=== PATIENT | female | born 1990 | race Caucasian/White ===

== ENCOUNTER → 2021-02-04 14:14 | Outpatient (BNVA) | payer BC, MEDICAID, SELFPAY | PROVIDERS: Family Provider Nurse Practitioner Family; Visit Provider Obstetrics & Gynecology | DX: N93.9 Abnormal uterine and vaginal bleeding, unspecified (principal) | CPT/HCPCS: 84146; 84443; 85025; 88175 ==

== ENCOUNTER → 2021-02-05 14:18 | Outpatient (BNVA) | payer BC, MEDICAID, SELFPAY | PROVIDERS: Family Provider Nurse Practitioner Family; PCP Nurse Practitioner Family; Visit Provider Obstetrics & Gynecology | DX: N93.9 Abnormal uterine and vaginal bleeding, unspecified (principal) | CPT/HCPCS: 76830 ==

== ENCOUNTER → 2021-03-10 15:48 | Outpatient (BNVA) | payer BC, MEDICAID, SELFPAY | PROVIDERS: Family Provider Nurse Practitioner Family; PCP Nurse Practitioner Family; Visit Provider Obstetrics & Gynecology | DX: N93.9 Abnormal uterine and vaginal bleeding, unspecified (principal); A59.01 Trichomonal vulvovaginitis; Z11.3 Encounter for screening for infections with a predominantly sexual mode of transmission; R87.610 Atypical squamous cells of undetermined significance on cytologic smear of cervix (ASC-US); R87.810 Cervical high risk human papillomavirus (HPV) DNA test positive | CPT/HCPCS: 81025; 86592; 86803; 87340; 87491; 87591; 87806; 88305 ==

== ENCOUNTER → 2021-04-29 09:01 | Outpatient (BNVA) | payer BC, MEDICAID, SELFPAY | PROVIDERS: Family Provider Nurse Practitioner Family; PCP Nurse Practitioner Family; Visit Provider Obstetrics & Gynecology | DX: N93.9 Abnormal uterine and vaginal bleeding, unspecified (principal); Z30.9 Encounter for contraceptive management, unspecified | CPT/HCPCS: 81025 ==

== ENCOUNTER → 2021-05-26 09:43 | Outpatient (BNVA) | payer BC, MEDICAID, SELFPAY | PROVIDERS: Family Provider Nurse Practitioner Family; PCP Nurse Practitioner Family; Visit Provider Obstetrics & Gynecology | DX: N93.9 Abnormal uterine and vaginal bleeding, unspecified (principal) | CPT/HCPCS: 76857; 81025 ==

== ENCOUNTER → 2021-10-27 13:03 | Outpatient (BNVA) | payer BC, MEDICAID, SELFPAY | PROVIDERS: Family Provider Nurse Practitioner Family; PCP Nurse Practitioner Family; Visit Provider Obstetrics & Gynecology | DX: D64.9 Anemia, unspecified (principal) | CPT/HCPCS: 85027 ==

== ENCOUNTER → 2022-03-30 11:30 | Outpatient (BNVA) | payer BC, MEDICAID, SELFPAY | PROVIDERS: Family Provider Nurse Practitioner Family; PCP Nurse Practitioner Family; Visit Provider Obstetrics & Gynecology | DX: A59.01 Trichomonal vulvovaginitis (principal); Z12.4 Encounter for screening for malignant neoplasm of cervix; D64.9 Anemia, unspecified | CPT/HCPCS: 85027; 87624; 87661 ==

== ENCOUNTER 2022-06-02 08:50 | Observation (INO) | payer BC, MEDICAID, SELFPAY ==
[2022-05-28 11:08] VITALS: BMI 35.4
[2022-05-28 11:37] LABS: Basophils % 0.3 %; Eosinophils # 0.2 10^3/uL (0.0-0.8); Eosinophils % 2.2 %; Hematocrit 40.4 % (37.0-47.0); Hemoglobin 13.2 g/dL (11.5-15.3); Lymphocytes # 2.4 10^3/uL (0.8-4.8); Lymphocytes % 23.6 %; Mean Corpuscular HGB Conc 32.7 g/dL (30.0-36.0); Mean Corpuscular Hemoglobin 29.7 pg (28.0-34.0); Mean Corpuscular Volume 90.8 fl (81-99); Mean Platelet Volume 10.9 fL (7.4-10.4); Monocytes # 0.5 10^3/uL (0.2-0.9); Neutrophils # 7.11 10^3/uL (1.8-7.7); Neutrophils % 68.7 %; Nucleated Red Blood Cells % 0 %; Platelet Count 294 10^3/cmm (130-400); Red Blood Count 4.45 10^6/uL (4.1-5.3); Red Cell Distribution Width 12.5 % (12.1-15.1); White Blood Count 10.4 10^3/uL (4.0-10.0)
[2022-05-28 11:59] LABS: Alanine Aminotransferase 10 U/L (0-33); Alkaline Phosphatase 78 U/L (35-105); Anion Gap 14.1 (5-19); Aspartate Amino Transferase 12 U/L (0-32); Blood Urea Nitrogen 9 mg/dL (6-20); Calcium 9.3 mg/dL (8.5-10.5); Carbon Dioxide 23 mmol/L (22-29); Chloride 104 mmol/L (98-107); Globulin 3.2 g/dL (1.3-4.6); Glomerular Filtration Rate 95.8 mL/min (90-130); Glucose 93 mg/dL (65-115); Osmolality Calculated 282 mOsm/kg (285-295); Potassium 4.1 mmol/L (3.5-5.1); Sodium 137 mmol/L (136-145); Total Bilirubin 0.5 mg/dL (0.15-1.2); Total Protein 7.2 g/dL (6.6-8.7)
[2022-05-28 12:01] LABS: Bilirubin Urine Negative (Negative); Blood Urine Small (Negative); Glucose Urine UA Negative (Normal); Ketones Urine Negative (Negative); Leukocyte Esterase Urine Negative (Negative); Nitrate Urine Negative; Protein Urine Negative (Negative); Urine Appearance Clear (CLEAR); Urine Color Yellow (Yellow); Urobilinogen Urine 0.2 mg/dL (Negative); pH Urine 5.5 (5-7)
[2022-05-28 12:23] LABS: Add Urine Culture? No; Add Urine Microscopic? YES; Bacteria Urine TRACE /hpf; WBC Urine 0-4 /hpf (0-5)
--- NOTE | 2022-05-28 14:47 | ANES.PREANE2 ---
Pre-Anesthetic Assessment Height/Weight: Height 1.6 m Weight 90.718 kg Preop Diagnosis: Abnormal uterine bleeding menorrhagia irregular menses Operation Date: 06/02/22 07:00 Proposed Procedures p Total Vaginal Hysterectomy 52224,N92.1(Not Applicable) - Quinten Roberts MD Familial anesthetic complications: none Was Beta Vivien taken within 24 hours: Yes Was Clonidine taken within 24 hours: N/A Social No alcohol and No tobacco Exam alert, oriented x 3, clear to auscultation bilaterally and regular rate & rhythm Airway Submandibular: within normal limits Cervical ROM: within normal limits Mallampati: Class II Dentition: chipped CV/HEM Anemia and Hypertension Neuropsych Headache Anesthetic Plan ASA status: 2 Anesthesia: General Medications/Allergies Home Medications Medication Instructions Recorded Confirmed Last Taken Type ferrous sulfate 325 mg (65 mg 325 mg PO QPM 04/19/22 05/28/22 Unknown History iron) tablet metoprolol succinate 25 mg 25 mg PO DAILY 05/28/22 05/28/22 Unknown History tablet,extended release 24 hr sumatriptan succinate 50 mg tablet 50 mg PO Q2H PRN Headache 05/28/22 05/28/22 Unknown History (Imitrex) Allergies Allergy/AdvReac Type Severity Reaction Status Date / Time Penicillins Allergy ALGY-Rash Verified 05/28/22 11:56 PFSH Anesthesia Medical History No pertinent past medical history Denies diabetes, asthma, hypertension, seizures, DVT/PE PCP: MARIA ELENA Box Surgical History History of arthroscopic knee surgery Right knee for torn meniscus at age 10 S/P appendectomy as an infant(3 months old) at the time mass was removed from upper abdomen Status post surgery Surgery as an (3 months old) to remove a mass from her right upper abdomen which she was told was an absorbed twin Status post tonsillectomy and adenoidectomy At the age of 5 Family History Family/Other Colon cancer maternal great grandfather, diagnosed in his 80s Grandmother Thyroid condition maternal Denies family history of Ovarian cancer Diabetes Heart disease Hyperlipidemia Breast cancer Hypertension Uterine cancer Stroke Social History Smoking and tobacco status: never smoked Female Reproductive History Date of last menstrual period: 05/03/22 Data Anesthesia : 05/28/22 11:35 05/28/22 11:35 Short CBC 05/28/22 Range/Units 11:35 WBC 10.4 H (4.0-10.0) 10^3/uL Hgb 13.2 (11.5-15.3) g/dL Hct 40.4 (37.0-47.0) % MCV 90.8 (81-99) fl Plt Count 294 (130-400) 10^3/cmm Neut % (Auto) 68.7 % Neut # (Auto) 7.11 (1.8-7.7) 10^3/uL BMP 05/28/22 11:35 Sodium 137 Potassium 4.1 Chloride 104 Carbon Dioxide 23 BUN 9 Creatinine 0.7 Glucose 93 Calcium 9.3 Liver Function 05/28/22 Range/Units 11:35 Total Bilirubin 0.5 (0.15-1.2) mg/dL AST 12 (0-32) U/L ALT 10 (0-33) U/L Alkaline Phosphatase 78 (35-105) U/L Albumin 4.0 (3.5-5.2) g/dL Urine 05/28/22 Range/Units 11:44 Urine Color Yellow (Yellow) Urine Appearance Clear (CLEAR) Urine pH 5.5 (5-7) Ur Specific [place] 1.020 (1.005-1.030) Urine Protein Negative (Negative) Urine Glucose (UA) Negative (Normal) Urine Ketones Negative (Negative) Urine Nitrate Negative Urine Bilirubin Negative (Negative) Ur Leukocyte Esterase Negative (Negative) Urine RBC None (0-2) /hpf Urine WBC 0-4 H (0-5) /hpf Cardiac Studies: No Data to Display
[2022-06-02] VITALS (13 sets, daily range): BP systolic 91–147; BP diastolic 58–98; PULSE 53–72; RESP 12–21; TEMP 36.4–36.8; O2SAT 96–100
[2022-06-02] MEDS: sodium chloride 0.9% 500 ML IV (06:12)
[2022-06-02] MEDS: scopolamine 1.5 Patch 1 PATCH TRANSDERMA (06:13)
--- NOTE | 2022-06-02 06:28 | P.ANESUD_ITS ---
Pre-Anesthetic Update Pre-Anesthetic Assessment: Date of Surgery/Procedure: 06/02/22 Preop Graciela gnosis: Abnormal uterine bleeding menorrhagia irregular menses Proposed Procedure: Operation Date: 06/02/22 07:00 Proposed Procedures p Total Vaginal Hysterectomy 85008,N92.1(Not Applicable) - Quinten Roberts MD Any changes to Pre-Anesthetic Assessment?: No Last Intake: Intake Last Liquid Date 06/01/22 Last Liquid Time 19:30 Last Solid Date 06/01/22 Last Solid Time 19:30 Vitals: Temperature 97.5 F L 06/02/22 05:59 Temperature Source Temporal Artery S can 06/02/22 05:59 Pulse Rate 60 06/02/22 05:59 Respiratory Rate 17 06/02/22 05:59 Blood Pressure 147/98 06/02/22 05:59 Blood Pressure Ritu n 114 06/02/22 05:59 Pulse Oximetry 99 06/02/22 05:59 Oxygen Delivery Me thod 06/02/22 05:59 Exam: Pre-Anes Outpt Exam: alert, oriented x 3, clear to auscultation bilaterally and regular rate & rhythm Cardiac Studies: No Data to Display
[2022-06-02 06:33] LABS: OR HCG Qualitative Urine Negative (Negative)
[2022-06-02] MEDS: sodium chloride 0.9% 1,000 ML 30 ML IV (06:39)
--- NOTE | 2022-06-02 06:54 | W.PM.OPSUD ---
Surgery/Procedure H&P Update DATE OF PROCEDURE: June 02, 2022 DATE H&P PERFORMED: 05/28/22 H&P UPDATE INFORMATION: I have reviewed H&P completed within last 30 days, I have examined patient prior to procedure and No changes to prior documentation PREOP DIAGNOSIS: Abnormal uterine bleeding menorrhagia irregular menses PLANNED PROCEDURE: Operation Date: 06/02/22 07:00 Proposed Procedures p Total Vaginal Hysterectomy 97579,N92.1(Not Applicable) - Quinten Roberts MD
[2022-06-02] MEDS: vancomycin 1,000 MG in sodium chloride 0.9% 250 ML 250 MG IV (07:00)
--- NOTE | 2022-06-02 08:15 | P.OP_ITS ---
Operative Report Date of procedure: June 02, 2022 Pre-op diagnosis: Preop Diagnosis Abnormal uterine bleeding menorrhagia irregular menses Post-op diagnosis: Same as above Post-op findings: Enlarged uterus Procedure done: Total vaginal hysterectomy Specimens removed/disposition: Uterus Surgeon: Quinten Roberts MD Estimated blood loss (mL): 150 IV fluids (mL): 700 Urine output (mL): 200 Complications: None Procedure: After informed consent and risks, benefits, indications and alternatives reviewed with the patient was taken to the operating room. The patient was placed in dorsal lithotomy position prepped, and draped in the usual sterile fashion. The pre-procedure timeout verifying the correct patient, procedure, site and side, could not requirements was performed and acknowledge by the OR team. A Allen catheter was placed. A Bookwalter vaginal retractor was placed into the vagina in usual manner visualize the cervix. Cervix was grasped with a single tooth tenaculum and circumferentially infiltrated with 2% lidocaine with epinephrine. Then cervix was circumferentially incised with bovie and the bladder was dissected off the pubovesical cervical fascia anteriorly with a sponge stick and Metzenbaum scissors. The anterior peritoneal reflection was identified and the anterior cul-de-sac was entered sharply with Metzenbaum scissors. The same procedure was performed posteriorly and a posterior col potomy was made through the posterior cul-de-sac space without difficulty and the posterior blade of the Bookwalter vaginal retractor was advanced posteriorly into the cul-de-sac. At this time, the left and right uterosacral ligaments were isolated and ligated with 0 Vicryl. The Voyant device was placed over the uterosacral ligaments on either side and was then used in a serial fashion up through the cardinal ligaments bilaterally cross-clamped, cut, and sealed with the Voyant device. Finally, the uterine arteries were cross-clamped, cut, sealed and ligated with the Voyant device. Hemostasis was assured. The broad ligaments were then serially clamped, sealed and cut with the Voyant device on both sides. Excellent hemostasis was visualized. Both cornua were clamped, sealed and cut with the Voyant device. Then the pedicles were then suture ligated with excellent hemostasis. The uterus was excised and submitted for pathologic evaluation. No other abnormalities were noted in the pelvic cavity. Good hemostasis was assure on both sides. Methylene blue was given IV. The peritoneum was then closed in a pursestring fashion with 0 Vicryl suture. The vaginal cuff angles were closed with [id number] #0 Vicryl suture on both sides and transfixed with the ipsilateral cardinal and uterosacral ligaments. The remainder of the vaginal cuff was closed with #0 Vicryl in a running locked fashion. At this time, instruments were removed from the vagina at hemostasis assured. Allen catheter was noted yielding clear jeramie urine. The patient was taken out of dorsal lithotomy position and awakened from the general anesthesia. The patient tolerated the procedure well and was taken to the PACU recovery room in a stable condition. Sponge, lap, needle and instruments counts were correct x3.
--- NOTE | 2022-06-02 10:05 | ANE.PACU2 ---
Inpatient post-anesthesia follow up: Airway intact: Yes Vital signs: Temperature 97.7 F Pulse Rate 62 Respiratory Rate 15 Blood Pressure 103/72 Pulse Oximetry 99 Oxygen Delivery Me thod Room Air Oxygen Flow Rate 6 Fraction of Inspir ed Oxygen Hydration adequate: Yes Nausea and vomiting: No Pain level: 1 Mental status: Baseline
[2022-06-02] MEDS: dextrose 5%-lactated ringers 1,000 ML 125 ML IV (13:45)
[2022-06-02] MEDS: ketorolac 30 mg/mL INJ IVP (14:44)
--- NOTE | 2022-06-02 16:08 | PM.MISC ---
Miscellaneous Note Purpose of Documentation: Assesment for blurry vision Note: Called to bedside to assess patient for complaint of blurry vision. On arrival patient sitting in chair, non distressed, friend at bedside. S: Patient describes waking up in recovery and having normal vision, being able to use her phone and seeing without difficulty prior to transfer to floor. On floor patient took a nap. Upon awakening patient describes having blurry vision with difficulty completely making out figures on cellular phone and faces, both distant and near. Denies photophobia, eye irritation/pain, discharge. Denies nausea, vomiting, imbalance, weakness. She has her normal headache. Denies difficulty with speech. Patient recalls pre operative discussion I had her regarding avoidance of touching scopolamine patch and then her eyes and does not think she has done this. O: VSS, afebrile, non labored respiratory effort, on RA. No dysarthria noted, able to repeat No ifs ands or buts I went to the field to play baseball and [employer]. Both pupils 4 mm, equally round and equally reactive to light both direct and consensual. Able to count finger near and at a distance but describes appearance of almost double vision: CN III, IV, , VII, VIII, XI, XII intact. 5/5 motor strength in b/l upper extremity flexors/extensors, abductors/adductors, hip flexion/abduction/adduction, dorsi and plantar flexion. A/P: I suspect this is related to the scopolamine patch. We discussed other possible causes as well such as stroke, corneal abrasion and why I think these are less likely. I removed the scopolamine patch and cleansed the skin behind the ear with ETOH pledget. I advised patient to wash her hands as well. We discussed options, including observation now that the scopolamine patch has been removed, immediate CT scan to rule out stroke, and if available possible premium service representative consult. Patient elected to take a wait and see approach and see if symptoms improve over the next 6 hours, which I suspect they will.
--- NOTE | 2022-06-02 18:26 | PC.NURSE ---
1430 Pt asked if blurred vision was normal after surgery. Pt reports that her vision is blurry and that she can not see anything on her cell phone or far way. Reported that sometimes blurry vision can be a side effect from anesthesia. Pt reported that when she was in recovery she did not have any blurred vision. She reports she did not have any blurred vision until she woke up from a nap. Pt had just woke up from a 3-4 hour nap. Discussed with pt that I would reassess her vision in about 30 minutes. 1500 Reassessed pt vision at this time. Pt reported no improvement. This nurse asked pt if she had accidentally touched her scopolamine patch behind her ear, pt denies. Assess light reaction to both pupils with flashlight, both pupils reactive. Discussed with pt that I would reassess in 30 minutes and if there is still no improvement I will contact anesthesia provider about issue. 1530 Pt still reports no improvement in vision. Dr. Max notified at 1537 of pt blurred vision that has not improved. Dr. Max reported he would come assess pt.
--- NOTE | 2022-06-02 20:36 | CTR_ITS ---
PROCEDURE INFORMATION: Exam: CT Head Without Contrast Exam date and time: 06/02/2022 8:50 PM Age: 32 years old Clinical indication: Pain; Visual disturbance; Patient HX: C/O left temporal headache with blurry vision. History of migraines TECHNIQUE: Imaging protocol: Computed tomography of the head without contrast. Axial, coronal and sagittal reformatted images were created and reviewed. Radiation optimization: All CT scans at this facility use at least one of these dose optimization techniques: automated exposure control; mA and/or kV adjustment per patient size (includes targeted exams where dose is matched to clinical indication); or iterative reconstruction. COMPARISON: No relevant prior studies available. RADIATION DOSE METRICS: Total DLP (mGy-cm): 1061.88 FINDINGS: Brain: No CT evidence of acute intracranial hemorrhage or acute territorial infarction. No significant mass effect or midline shift. Basal cisterns patent. Cerebral ventricles: Normal in size and configuration. Paranasal sinuses: Unremarkable. No fluid levels. Mastoid air cells: Grossly unremarkable. Bones/joints: No acute osseous abnormality. Soft tissues: Grossly unremarkable. CT/CT head wo con* [id number] IMPRESSION: No CT evidence of acute intracranial pathology.
[2022-06-02] MEDS: acetaminophen 325 mg Tablet 650 MG PO (21:03)
[2022-06-03 05:23] LABS: Hematocrit 31.1 % (37.0-47.0); Hemoglobin 10.1 g/dL (11.5-15.3); Mean Corpuscular HGB Conc 32.5 g/dL (30.0-36.0); Mean Corpuscular Hemoglobin 29.6 pg (28.0-34.0); Mean Corpuscular Volume 91.2 fl (81-99); Mean Platelet Volume 11.1 fL (7.4-10.4); Platelet Count 263 10^3/cmm (130-400); Red Blood Count 3.41 10^6/uL (4.1-5.3); Red Cell Distribution Width 12.6 % (12.1-15.1); White Blood Count 12.8 10^3/uL (4.0-10.0)
[2022-06-03 05:24] VITALS: BP 103/65; PULSE 82; RESP 16; O2SAT 98
[2022-06-03] MEDS: ibuprofen 800 mg tablet PO (09:25)
[2022-06-03] MEDS: metoprolol succinate ER (24 HR) 25 mg Tablet PO (09:26)
[2022-06-03] MEDS: docusate sodium 100 mg Capsule PO (09:26)
--- NOTE | 2022-06-03 10:06 | PM.OBGYDC ---
Discharge Providers WEBSPHERE COMMERCE CONSULTANT Date of Admission: 06/02/22 08:50 Date of Discharge: 06/03/22 Attending Provider at Admission: Quinten Roberts MD Attending Provider at Discharge: Quinten Roberts MD Primary WEBSPHERE COMMERCE CONSULTANT: Quinten Roberts MD Primary Care Provider: Carmen Stacy Reason for Visit Reason for Visit: excessive and frequent menstruation with irregular Brief History: Mrs. Edgar 32-year-old female with abnormal uterine bleeding unresponsive to medical management. Hospital Course Hospital Course Mrs. Edgar 32-year-old female with abnormal uterine bleeding unresponsive to medical management. Admitted for planned total vaginal hysterectomy. The total vaginal hysterectomy was performed without complications. She is afebrile and hemodynamically stable postoperative day 1. Overnight observation concerned with patient complaining of blurry vision. She was evaluated by anesthesia provider and ordered a CT scan which was normal. No other complaints patient is ready to go home. She is afebrile hemodynamically stable. Tolerating diet well. Ambulating without difficulty. Minimal discomfort. Physical Exam Narrative: GA: Alert and oriented ?3. HEENT: WNL. Heart: Regular rate and rhythm. Lungs: Clear to auscultation bilaterally. Abdomen: Bowel sounds present, nontender. FAST FOOD CASHIER: scant bleeding. Extremities: No edema, no cyanosis, no calves pain. Urinary Catheter Management: Allen: Cath Placed During This Visit: yes, but has since been removed by the nurse Reason for Continuing Indwelling Catheter: Decision to DC Catheter Urinary Catheter Date of Insertion: 06/02/22 Urinary Catheter Time of Insertion: 07:27 Date Urinary Catheter Removed: 06/03/22 Time Urinary Catheter Discontinued: 05:20 History History History 3 Term 3 0 Miscarriages/Ectopic 0 Living Children 3 Discharge Data Studies Completed and Pending Completed Studies During Hospitalization Category Date Time Status CT head wo con* [id number] Stat Cat Scan 06/02/22 20:36 Completed Pending at discharge Category Date Time Status Pathology: Surgical [PTH] Routine Pth 06/02/22 08:16 Received Radiology Impressions Head CT 06/02/22 20:36 IMPRESSION: No CT evidence of acute intracranial pathology. Laboratory Results WBC 12.8 10^3/uL (4.0-10.0) H 06/03/22 05:19 RBC 3.41 10^6/uL (4.1-5.3) L 06/03/22 05:19 Hgb 10.1 g/dL (11.5-15.3) L 06/03/22 05:19 Hct 31.1 % (37.0-47.0) L 06/03/22 05:19 MCV 91.2 fl (81-99) 06/03/22 05:19 MCH 29.6 pg (28.0-34.0) 06/03/22 05:19 MCHC 32.5 g/dL (30.0-36.0) 06/03/22 05:19 RDW 12.6 % (12.1-15.1) 06/03/22 05:19 Plt Count 263 10^3/cmm (130-400) 06/03/22 05:19 MPV 11.1 fL (7.4-10.4) H 06/03/22 05:19 Neut % (Auto) 68.7 % 05/28/22 11:35 Lymph % (Auto) 23.6 % 05/28/22 11:35 [place] % (Auto) 5.0 % 05/28/22 11:35 Eos % (Auto) 2.2 % 05/28/22 11:35 Baso % (Auto) 0.3 % 05/28/22 11:35 Neut # (Auto) 7.11 10^3/uL (1.8-7.7) 05/28/22 11:35 Lymph # (Auto) 2.4 10^3/uL (0.8-4.8) 05/28/22 11:35 [place] # (Auto) 0.5 10^3/uL (0.2-0.9) 05/28/22 11:35 Eos # (Auto) 0.2 10^3/uL (0.0-0.8) 05/28/22 11:35 Baso # (Auto) 0.0 10^3/uL (0.0-0.1) 05/28/22 11:35 Nucleated RBC % (auto) 0 % 05/28/22 11:35 Nucleated RBCs # 0.0 /100WBC 05/28/22 11:35 Sodium 137 mmol/L (136-145) 05/28/22 11:35 Potassium 4.1 mmol/L (3.5-5.1) 05/28/22 11:35 Chloride 104 mmol/L (98-107) 05/28/22 11:35 Carbon Dioxide 23 mmol/L (22-29) 05/28/22 11:35 Anion Gap 14.1 (5-19) 05/28/22 11:35 BUN 9 mg/dL (6-20) 05/28/22 11:35 Creatinine 0.7 mg/dL (0.5-0.9) 05/28/22 11:35 GFR Calculation 95.8 mL/min (90-130) 05/28/22 11:35 Glucose 93 mg/dL (65-115) 05/28/22 11:35 Calculated Osmolality 282 mOsm/kg (285-295) L 05/28/22 11:35 Calcium 9.3 mg/dL (8.5-10.5) 05/28/22 11:35 Total Bilirubin 0.5 mg/dL (0.15-1.2) 05/28/22 11:35 AST 12 U/L (0-32) 05/28/22 11:35 ALT 10 U/L (0-33) 05/28/22 11:35 Alkaline Phosphatase 78 U/L (35-105) 05/28/22 11:35 Total Protein 7.2 g/dL (6.6-8.7) 05/28/22 11:35 Albumin 4.0 g/dL (3.5-5.2) 05/28/22 11:35 Globulin 3.2 g/dL (1.3-4.6) 05/28/22 11:35 Urine Color Yellow (Yellow) 05/28/22 11:44 Urine Appearance Clear (CLEAR) 05/28/22 11:44 Urine pH 5.5 (5-7) 05/28/22 11:44 Ur Specific [place] 1.020 (1.005-1.030) 05/28/22 11:44 Urine Protein Negative (Negative) 05/28/22 11:44 Urine Glucose (UA) Negative (Normal) 05/28/22 11:44 Urine Ketones Negative (Negative) 05/28/22 11:44 Urine Blood Small (Negative) A 05/28/22 11:44 Urine Nitrate Negative 05/28/22 11:44 Urine Bilirubin Negative (Negative) 05/28/22 11:44 Urine Urobilinogen 0.2 mg/dL (Negative) 05/28/22 11:44 Ur Leukocyte Esterase Negative (Negative) 05/28/22 11:44 Urine RBC None /hpf (0-2) 05/28/22 11:44 Urine WBC 0-4 /hpf (0-5) H 05/28/22 11:44 Ur Squamous Epith Cells None /hpf (0-5) 05/28/22 11:44 Amorphous Sediment Not Reportable 05/28/22 11:44 Urine Bacteria Trace /hpf (NONE) 05/28/22 11:44 Urine HCG, Qual Negative (Negative) 06/02/22 06:00 Blood Type O Positive 06/02/22 06:05 Rho(D) Type Positive 06/02/22 06:05 Antibody Screen Negative 06/02/22 06:05 Vitals Last Vital Signs Temp 98.3 F 06/02/22 20:45 Pulse 82 06/03/22 05:24 Resp 16 06/03/22 05:24 BP 103/65 06/03/22 05:24 Pulse Ox 98 06/03/22 05:24 O2 Del Method 06/03/22 05:24 O2 Flow Rate 6 06/02/22 08:45 Discharge Plan Discharge Patient Disposition: Home Condition: Stable Prescriptions: New hydrocodone-acetaminophen 5-325 mg tablet 1 tab PO Q4H PRN (Reason: pain) Qty: 20 0RF acetaminophen 325 mg capsule 325 mg PO Q4H PRN (Reason: fever or pain) Qty: 60 0RF docusate sodium [Colace] 100 mg capsule 100 mg PO BID Qty: 60 0RF ferrous sulfate [Iron (ferrous sulfate)] 325 mg (65 mg iron) tablet 325 mg PO BID Qty: 60 0RF ibuprofen 800 mg tablet 800 mg PO TID PRN (Reason: pain) Qty: 60 0RF Continued ferrous sulfate 325 mg (65 mg iron) tablet 325 mg PO QPM sumatriptan succinate [Imitrex] 50 mg tablet 50 mg PO Q2H PRN (Reason: Headache) Rx Instructions: do not exceed 4 doses per 24 hrs metoprolol succinate 25 mg tablet extended release 24 hr 25 mg PO DAILY Discharge Orders: Discharge Order (Routine); Ordered 06/03/22 Ordered By: Quinten Roberts Referrals: Quinten Roberts MD [Physician] - 06/18/22 3:45 pm ( Your 2 week follow up with Dr Roberts will be Jun 18 at 3:45pm Your [address] Roberts will be Jul 16 at 8:15am ) Discharge Diet: Advance as tolerated and Usual diet Discharge Activity: Limit activity as instructed Patient Instructions: Hydrocodone/Acetaminophen (By mouth) (Vicodin, [place], Lortab), Vaginal Hysterectomy (GEN), OB Discharge Report, OB Laproscopic Surgery - [facility], Opioid Safety Activity Restrictions/Additional Instructions: 1. Please call [facility] on next working day to make your post-operative appointment in 2 weeks. 2. Please stay home until you come back to the clinic on first post-operative check up. 3. Please follow instructions on your medications CAREFULLY. 4. If you have abdominal incision, do not cover it unless dressing is necessary because of drainage. OK to shower, but avoid bath. Leave steri-strips until they fall off. If they are still on one week after surgery, you may remove them. 5. If you had vaginal surgery or vaginal repair, Dr. Roberts may instruct you to take SITZ bath. 6. Yellow, blood tinged odorous vaginal discharge is usually normal after hysterectomy or vaginal surgeries. 7. No sexual intercourse, tampons, or douches until you are completely released from the post-operative care. 8. Avoid constipation by eating right and maybe using some Metamucil or Milk of Magnesia. 9. All prescription refills are given during the working hours. Please do no wait till it runs out. Call the clinic at [phone] before your medication runs out. The clinic will get in touch with your doctor to prescribe medications if necessary. 10. Please remain within 40 mile radius from our hospital because emergencies do happen now and then during the post-operative period. 11. If you have stairs at home, take one step at a time slowly and minimize the number of trips. It helps to stay in one floor for the next few days. No lifting except what you can lift by one hand until you are released from the post-operative care. 12. Driving is discouraged until you are well healed. It may be 3-4 weeks before you feel strong enough to drive. You should be able to turn and look through the rear window without pain and you should be able to push the brake pedal very hard without pain before you drive. No fast rules, but SAFETY should be your primary concern. DO NOT drive if you are on sedating medications such as narcotics. 13. Call the clinic (during working hours) to make urgent appointment or go to the Emergency room, if any of the following occurs: i. Vaginal bleeding becomes heavy, more than a period. ii. Incision becomes red and sore, or drains pus. iii. Your temperature is over 100.4 or you have chill. iv. IV site becomes red and swollen (a little ``knot?? is usually OK) v. Persistent nausea and vomiting vi. Persistent constipation or diarrhea vii. Rash or allergic reaction to medications. Discharge Attestations WEBSPH[employer] COMMERCE CONSULTANT Time Spent in Discharge Care*: greater than 30 min Coding Level of Care Code Acute Applications Analyst for Thuan Crawford
[2022-06-03 10:50] VITALS: BP 134/82; PULSE 59; RESP 16; TEMP 36.8; O2SAT 99
--- NOTE | 2022-06-04 17:36 | PM.MISC ---
Miscellaneous Note Purpose of Documentation: Follow up Note: Per nursing report patient discharged home resolution of blurry vision. I attempted to call patient to follow up with her this afternoon myself but was unable to get in touch with her and left a voicemail.
== END 2022-06-03 11:00 | disposition home or self-care (01) ==
LOC: OBGYN 08:50
PROVIDERS: Admitting Provider Obstetrics & Gynecology; PCP Nurse Practitioner Family; Visit Provider Obstetrics & Gynecology
PROC: (CPT 58260; principal; 2022-06-02 07:00)
DX: N93.9 Abnormal uterine and vaginal bleeding, unspecified (principal)
CPT/HCPCS: 58260; 36415; 70450; 80053; 81001; 81025; 84703; 85025; 85027; 86850; 86900; 88307; G0378; J0330; J1100; J1200; J1885; J2250; J2405; J2704; J2710; J3010; J3370; J3490; J7030; J7040; J7050; Q9968

== ENCOUNTER → 2023-04-25 18:23 | Outpatient (BNVA) | payer BC, MEDICAID, SELFPAY | PROVIDERS: PCP Nurse Practitioner Family; Visit Provider Nurse Practitioner | DX: J06.9 Acute upper respiratory infection, unspecified (principal); J00 Acute nasopharyngitis [common cold] | CPT/HCPCS: 87071; 87426; 87880 ==